=== PATIENT | female | born 1955 | race Two or more races ===

== ENCOUNTER 2024-08-21 23:59 | Inpatient (IN) | payer OTHER ==
[~2024-08-21] VITALS: Ht 160 cm; Wt 105.7 kg
[2024-08-22] VITALS (16 sets, daily range): BP systolic 84–114; BP diastolic 57–73; O2SAT 93–100
[2024-08-22] MEDS ORDERED: METFORMIN HCL1000 MG PO (00:17)
[2024-08-22] MEDS ORDERED: GLIMEPIRIDE2 MG (00:17)
--- NOTE | 2024-08-22 00:17 | NUR ---
PACIENTE REFIERE DOLOR EPIGASTRICO DESDE LAS 7PM LUEGO DE COMER. PACIENTE REFIERE QUE OTIS ENDOSCOPIA EN EL Jul EN DONDE SALIO CON DX. DE ESOPHAGITIS Y GASTRITIS.
[2024-08-22] MEDS ORDERED: HYOSCYAMINE SULFATE 0.125 MG TAB.SUBL SL STA (00:52)
[2024-08-22] MEDS ORDERED: KETOROLAC TROMETHAMINE 30 MG VIAL IV STA (00:53)
[2024-08-22] MEDS ORDERED: FAMOtidine 10 MG/ML (4ML VIAL) IV PUSH STA (00:54)
[2024-08-22] MEDS ORDERED: METOCLOPRAMIDE HCL 5 MG/ML VIAL IM STA (00:56)
[2024-08-22] MEDS ORDERED: MORPHINE SULFATE 2 MG/ML SYRINGE IV STA (00:59)
--- NOTE | 2024-08-22 01:25 | NUR ---
SE ORIENTA A PACIENTE Y FAMILIAR SOBRE TX MEDICO, REFIERE ENTENDER. SE ADMINISTRAN MEDICAMENTOS NELL ORDEN MEDICA. PENDIENTE RE-EVALUACION MEDICA. SE MANTIENE EN OBSERVACION POR CAMBIOS EN CONDICION MEDICA.
[2024-08-22] MEDS ORDERED: PANTOPRAZOLE SODIUM 40 MG/VIAL VIAL IV STA (02:32)
[2024-08-22] MEDS ORDERED: IPRATROPIUM/ALBUTEROL SULFATE 3 ML AMPUL.NEB IH STA (05:00)
[2024-08-22] MEDS ORDERED: 0.9 % SODIUM CHLORIDE 1,000 ML IV STA (05:03)
[2024-08-22] MEDS ORDERED: INSULIN REGULAR, HUMAN 1,000 UNIT/10 ML UNITS IV STA ×2 (05:05→08:19)
[2024-08-22] MEDS ORDERED: INSULIN REGULAR, HUMAN 1,000 UNIT/10 ML UNITS SUBCUTANEO STA (05:06)
--- NOTE | 2024-08-22 05:15 | NUR ---
FAMILIAR INDICA QUE PACIENTE SE ENCUENTRA "SUDOROSA, SE QUEJA DE FRIO Y NO PUEDE RESPIRAR"" REALIZA EKG Y SE NOTIFICA A REYES.
[2024-08-22] MEDS ORDERED: ONDANSETRON HCL 2 MG/ML VIAL IV STA (05:32)
--- NOTE | 2024-08-22 05:45 | NUR ---
SE TRANSFIERE PTE DE OBSERVACION A UNIDAD DE CHEST PAIN EN CAMA CON BARANDAS ELEVADAS POR MOREJON SEGURIDAD,SE CONECTA PTE A MONITOR CARDIACO,SE REALIZA SAJAN DE MUESTRAS DE LABORATORIO USANDO MEDIDAS ASEPTICAS,SE ADMINISTRAN MEDICAMENTOS NELL ORDEN MEDICA.SE REALIZA VENOPUNCIONES EN BRAZO TINA CON ANGIO #18 Y #20.SE COLOCA EN NRM 100% SATURANDO 88%,B/P-83/59(68) [address]AN [address]ACA PORTABLE DE PECHO. 0550 SE COLOCAN RESTRINSIONES EN EXTREMIDADES SUPERIORES POR ORDEN MEDICA DE . 0555 POR ORDEN MEDICA DE SE LLAMA PERSONAL DE ANESTESIA. 0559 SE ADMINISTRAN 5MG DE VERSED IV PUSH POR ORDEN MEDICA DE . 0600 SE ENTUBA PACIENTE POR TRINY CARLSON CON TUBO 7.5 FIJADO A 24 CM DE LABIOS,SE CONECTA A VENTILADOR MECANICO VT-400,R-16,PEEP-6,02-100%. 06:07 SE COLOCA DRIP DE VERSED 50MG/50 ML BAJANDO A 8ML/HR. 06:15 SE SAJAN PLACA DE PECHO PORTABLE POST EXTUBACION. PENDIENTE CT PECHO Y ABGS.
[2024-08-22] MEDS ORDERED: MIDAZOLAM HCL/PF 5 MG/ML VIAL IV STA (06:34)
[2024-08-22] MEDS ORDERED: MIDAZOLAM HCL 50 MG in 0.9 % SODIUM CHLORIDE 50 ML IV SCH (06:45)
[2024-08-22 06:50] LABS: ABG PH 7.339 (7.35-7.45); ABG PO2 57.8 mmHg (80-100); ABG pCO2 34.5 mmHg (35-45); BASE EXCESS -6.6 mmol/l; BICARBONATE 18.2 mmol/l (23-25); SaO2 87.1 %; Tco2 19.2 mmol/l; o2 100 %
[2024-08-22 06:51] LABS: allen test SATISFACTORY; puncture site RADIAL RIGHT
[2024-08-22 07:19] LABS: ALBUMIN 3.5 gm/dL (3.4-5.0); BILIRUBIN TOTAL 0.84 mg/dL (0.3-1.2); CALCIUM 8.9 mg/dL (8.5-10.1); CREATININE SERUM 0.98 mg/dL (0.55-1.02); GFR 55.94; GLOBULINA 3.3 G/DL (2.4-3.5); POTASSIUM 4.18 mEq/L (3.5-5.1); TOTAL PROTEIN 6.8 gm/dL (6.4-8.2)
[2024-08-22] MEDS ORDERED: CEFTRIAXONE SODIUM 2,000 MG VIAL IV STA (07:29)
[2024-08-22 07:36] LABS: HEMATOCRIT 39.5 % (36.0-45.00); HEMOGLOBIN 13.1 g/dL (12.0-15.00); MEAN CELL VOLUME 90.3 fL (80.00-100.00); MEAN CORPUSCULAR HEMOGLOBIN 29.9 pg (27.00-32.0); MEAN CORPUSCULAR HGB CONC 33.1 g/dl (32.0-36.0); PLATELET COUNT 302 K/uL (150-450); RED BLOOD COUNT 4.38 M/uL (4.00-6.00); RED CELL DISTRIBUTION WIDTH 14.2 % (11.5-14.5)
[2024-08-22] MEDS ORDERED: FUROsemide 40 MG/4 ML VIAL IV STA (07:56)
[2024-08-22] MEDS ORDERED: NITROGLYCERIN 50MG IN NSS (KIT INCLUYE LINEA) IV STA (07:57)
[2024-08-22 12:16] LABS: ABG PH 7.352 (7.35-7.45); ABG PO2 322.8 mmHg (80-100); ABG pCO2 36.7 mmHg (35-45)
[2024-08-22 12:17] LABS: BASE EXCESS -0.5 mmol/l; BICARBONATE 19.9 mmol/l (23-25); SaO2 99.9 %; allen test SATISFACTORY; o2 100 %; puncture site RADIAL RIGHT
[2024-08-22] MEDS ORDERED: 0.9 % SODIUM CHLORIDE 1,000 ML IV SCH (16:15)
--- NOTE | 2024-08-22 16:16 | NUR ---
1500 SE RECIBE PTE FEMENINA EN STATIONARY ENGINEER REFRIGERATION #18 DE UNIDAD DE CHESTPAIN, BAJO SEDACION MODERADA RESPONDIENDO A ESTIMULOS DE DOLOR, CONECTADA A MONITOR CARDIACO Y OXIMETRIA DE PULSO CONTINUA. SE OBSERVA ASISTIDA RESPIRATORIAMENTE CON VENTILADOR MECANICO, INTUBACION OROTRAQUEAL TUBO 7.5 FIJADO EN 24 EN CMOISURA LABIAL, PARAMETROS: MODO A/C, VT:400, PEEP:6, RR:14/MIN Y FIO2: 50%, PRESENTANDO SATURACION DE O2 MANUAL AL 100%. PTE SIN QUEJA DE DOLOR AL MOMENTO, VENOPUNCION PATENTES X3 EN BRAZO L+, LIBRES DE EDEMA YERITEMA RECIBIENDO TERAPIA DE IVFS LEVOPHED 4MG/250ML BAJANDO A 20ML/HR, VERSED 50MG/50ML BAJANDO A 4ML/HR Y 0.9NSS A KVO, NELL ORDENES MEDICAS. ABDOMEN BLANDO Y DEPRESIBLE CON PERISTALSIS PRESENTE. [PTE SIN PRESENCIA ENFISEMA SUBCUTANEO. SONDA URINARIA A GRAVEDAD DRENANDO EGRESO DE ORINA COLOR AMARILLO PRISCILLA. RESTRICCIONES BLANDAS X2 NELL ORDEN MEDICA. PTE EN CAMA NIVEL MAS BAJO, CABCERA A 45 GRADOS, BARANDAS ELEVADAS Y FRENOS COLOCADOS POR SEGURIDAD. PENDIENTE CONSULTA CON MEDICINA INTERNA YA NOTIFICADA. SE KEVIN Y REPORTAN S/V. SE MANTIENE BAJO OBSERVACION POR CAMBIOS EN MOREJON CONDICION.
[2024-08-22] MEDS ORDERED: ENOXAPARIN SODIUM 40 MG/0.4 ML SYRINGE SUBCUTANEO SCH (16:21)
[2024-08-22] MEDS ORDERED: ASPIRIN 325 MG TABLET.EC PO SCH (16:21)
[2024-08-22] MEDS ORDERED: PANTOPRAZOLE SODIUM 40 MG/VIAL VIAL IV PUSH SCH (16:22)
[2024-08-22] MEDS ORDERED: DEXTROSE 50 % IN WATER 0.5 G/ML DISP.SYRIN IV PRN (16:30)
[2024-08-22] MEDS ORDERED: INSULIN LISPRO 1,000 UNIT/10 ML UNITS SUBCUTANEO PRN (16:30)
[2024-08-22] MEDS ORDERED: CLOPIDOGREL BISULFATE 75 MG TABLET PO ONE (16:30)
[2024-08-22] MEDS ORDERED: ATORVASTATIN CALCIUM 40 MG TABLET PO SCH (17:00)
[2024-08-22] MEDS ORDERED: NOREPINEPHRINE BITARTRATE 8 MG in DEXTROSE 5 % IN WATER 250 ML IV SCH (17:15)
[2024-08-22] MEDS ORDERED: AZITHROMYCIN 500 MG VIAL IV SCH (17:49)
[2024-08-22] MEDS ORDERED: CEFTRIAXONE SODIUM 2,000 MG in DEXTROSE 5 % IN WATER 100 ML IV SCH (17:49)
[2024-08-22 19:39] LABS: CKMB 185.6 NG/ML (0.5-3.6)
[2024-08-23] VITALS (13 sets, daily range): BP systolic 86–123; BP diastolic 65–82; O2SAT 97–100
[2024-08-23] MEDS ORDERED: MIDAZOLAM HCL 100 MG in 0.9 % SODIUM CHLORIDE 100 ML IV SCH (06:45)
[2024-08-23 07:23] LABS: HEMATOCRIT 34.5 % (36.0-45.00); MEAN CELL VOLUME 87.1 fL (80.00-100.00); MEAN CORPUSCULAR HEMOGLOBIN 30.3 pg (27.00-32.0); MEAN CORPUSCULAR HGB CONC 34.7 g/dl (32.0-36.0); PLATELET COUNT 210 K/uL (150-450); RED BLOOD COUNT 3.96 M/uL (4.00-6.00); RED CELL DISTRIBUTION WIDTH 14.5 % (11.5-14.5)
[2024-08-23 07:40] LABS: BILIRUBIN TOTAL 0.47 mg/dL (0.3-1.2); CALCIUM 7.7 mg/dL (8.5-10.1); CHOL HDL RATIO 2.4 (0-5.0); CREATININE SERUM 0.53 mg/dL (0.55-1.02); GFR 113.72; GLOBULINA 2.8 G/DL (2.4-3.5); MAGNESIUM 2.2 mg/dL (1.8-2.4); POTASSIUM 4.27 mEq/L (3.5-5.1); TOTAL PROTEIN 5.8 gm/dL (6.4-8.2); TSH 0.836 uIU/mL (0.358-3.74)
[2024-08-23] MEDS ORDERED: INSULIN LISPRO 1,000 UNIT/10 ML UNITS SUBCUTANEO PRN (08:00)
[2024-08-23 08:09] LABS: C-REACTIVE PROTEIN 8.73 MG/DL (0.00-0.29)
[2024-08-23 08:10] LABS: CKMB 67.1 NG/ML (0.5-3.6)
[2024-08-23 08:13] LABS: ERYTHROCYTE SEDIMENTATION RATE 31 mm/hr
[2024-08-23 08:31] LABS: ABG PH 7.453 (7.35-7.45); ABG PO2 88.6 mmHg (80-100); ABG pCO2 30.3 mmHg (35-45); SaO2 97.2 %
[2024-08-23 08:32] LABS: BICARBONATE 20.7 mmol/l (23-25); Tco2 21.7 mmol/l; allen test SATISFACTORY; o2 50 %; puncture site RADIAL RIGHT
[2024-08-23] MEDS ORDERED: CLOPIDOGREL BISULFATE 75 MG TABLET PO SCH (09:00)
[2024-08-23] MEDS ORDERED: ENOXAPARIN SODIUM 40 MG/0.4 ML SYRINGE SUBCUTANEO SCH (09:00)
[2024-08-23] MEDS ORDERED: INSULIN NPH HUMAN ISOPHANE 1,000 UNITS/10 ML UNITS SUBCUTANEO SCH (09:00)
[2024-08-23] MEDS ORDERED: POTASSIUM PHOS,M-BASIC-D-BASIC 18 MM in 0.9 % SODIUM CHLORIDE 250 ML IV ONE (18:30)
[2024-08-23] MEDS ORDERED: POLYVINYL ALCOHOL 15 ML DROPS OP SCH (18:32)
[2024-08-23] MEDS ORDERED: CHLORHEXIDINE GLUCONATE 15ML BRUSH KIT MM SCH (18:32)
[2024-08-24] VITALS (13 sets, daily range): BP systolic 84–95; BP diastolic 55–72; O2SAT 97–100
[2024-08-24 07:24] LABS: ALBUMIN 2.5 gm/dL (3.4-5.0); BILIRUBIN TOTAL 0.64 mg/dL (0.3-1.2); CALCIUM 7.6 mg/dL (8.5-10.1); CREATININE SERUM 0.51 mg/dL (0.55-1.02); GFR 118.87; GLOBULINA 2.6 G/DL (2.4-3.5); MAGNESIUM 2.5 mg/dL (1.8-2.4); PHOSPHOROUS 2.7 mg/dL (2.5-4.9); POTASSIUM 4.52 mEq/L (3.5-5.1); TOTAL PROTEIN 5.1 gm/dL (6.4-8.2)
[2024-08-24 07:27] LABS: HEMATOCRIT 32.3 % (36.0-45.00); HEMOGLOBIN 11.1 g/dL (12.0-15.00); MEAN CELL VOLUME 88.1 fL (80.00-100.00); MEAN CORPUSCULAR HEMOGLOBIN 30.3 pg (27.00-32.0); MEAN CORPUSCULAR HGB CONC 34.5 g/dl (32.0-36.0); PLATELET COUNT 197 K/uL (150-450); RED BLOOD COUNT 3.67 M/uL (4.00-6.00); RED CELL DISTRIBUTION WIDTH 14.4 % (11.5-14.5)
[2024-08-24 07:46] LABS: C-REACTIVE PROTEIN 17.1 MG/DL (0.00-0.29)
[2024-08-24 09:40] LABS: MYCOPLASMA PNEUMONIAE IGM NON REACTIVE (NO REACTIVE)
[2024-08-24 11:49] LABS: ABG PH 7.386 (7.35-7.45); ABG pCO2 32.4 mmHg (35-45)
[2024-08-24 11:50] LABS: ABG PO2 82.8 mmHg (80-100); BASE EXCESS -4.9 mmol/l; SaO2 95.7 %
[2024-08-24 11:51] LABS: allen test SATISFACTORY; o2 50 %; puncture site RADIAL RIGHT
[2024-08-25] VITALS (11 sets, daily range): BP systolic 89–112; BP diastolic 59–76; O2SAT 92–100
[2024-08-25] MEDS ORDERED: FUROsemide 20 MG/2 ML VIAL IV SCH ×2 (09:00→17:00)
[2024-08-25] MEDS ORDERED: ASPIRIN 81 MG TABLET.EC PO SCH (09:00)
[2024-08-25 09:23] LABS: PROCALCITONIN 0.119 ng/ml (0.020-0.080)
[2024-08-25 10:04] LABS: CORTISOL 36.59 ug/dl
[2024-08-25 13:08] LABS: ABG PH 7.442 (7.35-7.45); ABG PO2 115.7 mmHg (80-100); ABG pCO2 23.2 mmHg (35-45); BASE EXCESS -6.4 mmol/l; BICARBONATE 15.5 mmol/l (23-25); SaO2 98.6 %; Tco2 16.2 mmol/l
[2024-08-25 13:09] LABS: o2 45 %
[2024-08-25 13:11] LABS: allen test SATISFACTORY; puncture site RADIAL LEFT
[2024-08-25] MEDS ORDERED: ENOXAPARIN SODIUM 40 MG/0.4 ML SYRINGE SUBCUTANEO SCH (21:00)
[2024-08-25 23:18] LABS: HEMATOCRIT 34.9 % (36.0-45.00); MEAN CELL VOLUME 90.8 fL (80.00-100.00); PLATELET COUNT 242 K/uL (150-450); RED BLOOD COUNT 3.84 M/uL (4.00-6.00); RED CELL DISTRIBUTION WIDTH 15.1 % (11.5-14.5)
[2024-08-25 23:42] LABS: INR 1.28; PARTIAL THROMBOPLASTIN TIME 26.7 SECONDS (22.0-34.0); PROTHROMBIN TIME 13.7 SECONDS (9.0-11.5)
[2024-08-25 23:52] LABS: ALBUMIN 2.5 gm/dL (3.4-5.0); BILIRUBIN TOTAL 0.85 mg/dL (0.3-1.2); CALCIUM 7.8 mg/dL (8.5-10.1); CREATININE SERUM 0.73 mg/dL (0.55-1.02); GFR 78.59; GLOBULINA 2.8 G/DL (2.4-3.5); MAGNESIUM 2.7 mg/dL (1.8-2.4); PHOSPHOROUS 3.7 mg/dL (2.5-4.9); POTASSIUM 4.06 mEq/L (3.5-5.1); TOTAL PROTEIN 5.3 gm/dL (6.4-8.2)
[2024-08-25 23:59] LABS: HEMOGLOBIN 11.1 g/dL (12.0-15.00); MEAN CORPUSCULAR HEMOGLOBIN 28.9 pg (27.00-32.0)
[2024-08-26] VITALS (7 sets, daily range): BP systolic 95–138; BP diastolic 52–72; O2SAT 96–100
[2024-08-26] MEDS ORDERED: LACTULOSE 20 G/30 ML BLIST.PACK NGT STA (09:46)
[2024-08-26] MEDS ORDERED: MAGNESIUM HYDROXIDE 30 ML BLIST.PACK PO STA (09:47)
[2024-08-26] MEDS ORDERED: MINERAL OIL 30 ML BLIST.PACK PO STA (09:47)
[2024-08-26] MEDS ORDERED: SODIUM BICARBONATE 150 MEQ in DEXTROSE 5 % IN WATER 1,000 ML IV SCH (10:15)
[2024-08-26 10:48] LABS: HEMOGLOBIN 10.9 g/dL (12.0-15.00); MEAN CELL VOLUME 89.4 fL (80.00-100.00); MEAN CORPUSCULAR HEMOGLOBIN 30.4 pg (27.00-32.0); PLATELET COUNT 226 K/uL (150-450); RED BLOOD COUNT 3.58 M/uL (4.00-6.00); RED CELL DISTRIBUTION WIDTH 15.1 % (11.5-14.5)
[2024-08-26 10:55] LABS: ABG PH 7.279 (7.35-7.45); ABG PO2 76.4 mmHg (80-100); ABG pCO2 26.6 mmHg (35-45); BASE EXCESS -12.8 mmol/l; BICARBONATE 12.2 mmol/l (23-25); SaO2 92.2 %
[2024-08-26 10:56] LABS: allen test SATISFACTORY; o2 80 %; puncture site RADIAL RIGHT
[2024-08-26 11:58] LABS: ALBUMIN 2.4 gm/dL (3.4-5.0); BILIRUBIN TOTAL 0.71 mg/dL (0.3-1.2); CALCIUM 6.9 mg/dL (8.5-10.1); CREATININE SERUM 1.12 mg/dL (0.55-1.02); GFR 47.95; GLOBULINA 2.6 G/DL (2.4-3.5); MAGNESIUM 2.8 mg/dL (1.8-2.4); PHOSPHOROUS 3.4 mg/dL (2.5-4.9); POTASSIUM 4.18 mEq/L (3.5-5.1)
[2024-08-26 21:13] LABS: TP PLEURAL FLUID 1.7 g/dl
[2024-08-26] MEDS ORDERED: LACTULOSE 10 G/15 ML ML RECTAL ONE (21:30)
[2024-08-26 21:46] LABS: MONONUCLEAR 63 %; PLEURAL FLUID APPEARANCE CRYSTAL CLEAR; PLEURAL FLUID COLOR YELLOW; POLYMORPHONUCLEAR 37 %
[2024-08-27 04:00] VITALS: BP 106/68; O2SAT 100
[2024-08-27 07:08] LABS: ALBUMIN 2.3 gm/dL (3.4-5.0); BILIRUBIN TOTAL 0.57 mg/dL (0.3-1.2); CALCIUM 6.6 mg/dL (8.5-10.1); CREATININE SERUM 0.98 mg/dL (0.55-1.02); GFR 55.94; GLOBULINA 2.8 G/DL (2.4-3.5); POTASSIUM 3.7 mEq/L (3.5-5.1); TOTAL PROTEIN 5.1 gm/dL (6.4-8.2)
[2024-08-27 07:19] LABS: PHOSPHOROUS 1.6 mg/dL (2.5-4.9)
[2024-08-27 07:23] VITALS: BP 103/67; O2SAT 100
[2024-08-27 08:27] LABS: ABG PO2 278.7 mmHg (80-100); ABG pCO2 32.8 mmHg (35-45); BASE EXCESS 3.1 mmol/l; BICARBONATE 25.6 mmol/l (23-25); SaO2 99.9 %; Tco2 26.6 mmol/l
[2024-08-27 08:34] LABS: o2 80 %
[2024-08-27 08:35] LABS: allen test NO SATISFACTORY; puncture site RADIAL RIGHT
[2024-08-27] MEDS ORDERED: INSULIN NPH HUMAN ISOPHANE 1,000 UNITS/10 ML UNITS SUBCUTANEO SCH (09:00)
[2024-08-27] MEDS ORDERED: DEXTROSE 5 % IN WATER 1,000 ML IV SCH (10:15)
[2024-08-27] MEDS ORDERED: SOD PHOSPHATE,MONOBASIC-DIBAS 3 MMOL/ML VIAL IV NR (10:15)
[2024-08-27] MEDS ORDERED: POTASSIUM PHOS,M-BASIC-D-BASIC 3 MM/ML VIAL IV NR ×2 (10:45→19:00)
[2024-08-27 12:00] VITALS: BP 104/70; O2SAT 99
[2024-08-27 15:55] VITALS: BP 112/70; O2SAT 99
[2024-08-27 20:00] VITALS: BP 97/64; O2SAT 99
[2024-08-27 23:47] VITALS: BP 98/73; O2SAT 98
[2024-08-28 04:00] VITALS: BP 98/64; O2SAT 100
[2024-08-28 06:23] LABS: HEMATOCRIT 31.3 % (36.0-45.00); HEMOGLOBIN 10.4 g/dL (12.0-15.00); MEAN CELL VOLUME 88.5 fL (80.00-100.00); MEAN CORPUSCULAR HEMOGLOBIN 29.5 pg (27.00-32.0); MEAN CORPUSCULAR HGB CONC 33.4 g/dl (32.0-36.0); PLATELET COUNT 162 K/uL (150-450); RED BLOOD COUNT 3.53 M/uL (4.00-6.00)
[2024-08-28 06:46] LABS: ALBUMIN 2.3 gm/dL (3.4-5.0); BILIRUBIN TOTAL 0.42 mg/dL (0.3-1.2); CALCIUM 6.7 mg/dL (8.5-10.1); CREATININE SERUM 0.73 mg/dL (0.55-1.02); GFR 78.59; GLOBULINA 2.8 G/DL (2.4-3.5); MAGNESIUM 2.9 mg/dL (1.8-2.4); POTASSIUM 3.9 mEq/L (3.5-5.1); TOTAL PROTEIN 5.1 gm/dL (6.4-8.2)
[2024-08-28 07:25] LABS: PHOSPHOROUS 1.9 mg/dL (2.5-4.9)
[2024-08-28 07:36] VITALS: BP 99/61; O2SAT 100
[2024-08-28] MEDS ORDERED: POTASSIUM PHOS,M-BASIC-D-BASIC 3 MM/ML VIAL IV NR (08:15)
[2024-08-28 12:00] VITALS: BP 85/56; O2SAT 97
[2024-08-28 12:29] LABS: ABG PH 7.545 (7.35-7.45); ABG PO2 165.2 mmHg (80-100); ABG pCO2 32.3 mmHg (35-45); BASE EXCESS 5.3 mmol/l; BICARBONATE 27.3 mmol/l (23-25); SaO2 99.7 %; Tco2 28.3 mmol/l
[2024-08-28 12:31] LABS: allen test SATISFACTORY; o2 50 %; puncture site RADIAL RIGHT
[2024-08-28 15:18] VITALS: BP 89/58; O2SAT 100
[2024-08-28 20:00] VITALS: BP 85/54; O2SAT 100
[2024-08-28] MEDS ORDERED: INSULIN NPH HUMAN ISOPHANE 1,000 UNITS/10 ML UNITS SUBCUTANEO SCH (21:00)
[2024-08-28] MEDS ORDERED: LORazepam 2 MG/ML VIAL IV PUSH SCH (21:00)
[2024-08-28 23:49] VITALS: BP 112/62; O2SAT 100
[2024-08-29] VITALS (7 sets, daily range): BP systolic 89–109; BP diastolic 58–63; O2SAT 80–100
[2024-08-29 06:58] LABS: HEMATOCRIT 31.6 % (36.0-45.00); HEMOGLOBIN 10.7 g/dL (12.0-15.00); MEAN CORPUSCULAR HEMOGLOBIN 30.1 pg (27.00-32.0); MEAN CORPUSCULAR HGB CONC 33.8 g/dl (32.0-36.0); PLATELET COUNT 163 K/uL (150-450); RED BLOOD COUNT 3.55 M/uL (4.00-6.00)
[2024-08-29 07:45] LABS: ALBUMIN 2.3 gm/dL (3.4-5.0); BILIRUBIN TOTAL 0.62 mg/dL (0.3-1.2); CALCIUM 6.8 mg/dL (8.5-10.1); CREATININE SERUM 0.71 mg/dL (0.55-1.02); GFR 81.15; GLOBULINA 2.8 G/DL (2.4-3.5); MAGNESIUM 3.1 mg/dL (1.8-2.4); PHOSPHOROUS 2.3 mg/dL (2.5-4.9); POTASSIUM 3.86 mEq/L (3.5-5.1); TOTAL PROTEIN 5.1 gm/dL (6.4-8.2)
[2024-08-29 11:04] LABS: ABG PH 7.518 (7.35-7.45); ABG PO2 88.7 mmHg (80-100); BASE EXCESS 4.4 mmol/l; SaO2 97.9 %
[2024-08-29] MEDS ORDERED: LEVALBUTEROL HCL 1.25 MG/3 ML SOLUTION IH NR (11:24)
[2024-08-29] MEDS ORDERED: METHYLPREDNISOLONE SOD SUCC 40 MG VIAL IV STA (11:24)
[2024-08-29] MEDS ORDERED: RACEPINEPHRINE HCL 0.5 ML AMPUL IH NR (11:30)
[2024-08-29 11:57] LABS: allen test SATISFACTORY; o2 40 %; puncture site RADIAL LEFT
[2024-08-29 12:53] LABS: ABG PH 7.516 (7.35-7.45); ABG PO2 74.7 mmHg (80-100); ABG pCO2 35.1 mmHg (35-45); BICARBONATE 27.8 mmol/l (23-25); SaO2 96.5 %; Tco2 28.9 mmol/l
[2024-08-29 12:54] LABS: allen test SATISFACTORY; o2 36 %; puncture site RADIAL LEFT
[2024-08-29] MEDS ORDERED: METHYLPREDNISOLONE SOD SUCC 40 MG VIAL IV SCH (17:00)
[2024-08-29] MEDS ORDERED: METHYLPREDNISOLONE SOD SUCC 40 MG VIAL IV ONE (19:15)
[2024-08-29] MEDS ORDERED: LEVALBUTEROL HCL 0.63 MG/3 ML SOLUTION IH SCH (19:15)
[2024-08-29] MEDS ORDERED: IPRATROPIUM BROMIDE 0.5 MG/2.5 ML AMPUL.NEB IH SCH (19:15)
[2024-08-29] MEDS ORDERED: BUDESONIDE 0.5 MG/2 ML AMPUL.NEB IH SCH (21:00)
[2024-08-30] MEDS ORDERED: METHYLPREDNISOLONE SOD SUCC 40 MG VIAL IV SCH ×2 (01:00→17:00)
[2024-08-30 04:00] VITALS: BP 101/60; O2SAT 100
[2024-08-30 07:09] VITALS: BP 109/61; O2SAT 100
[2024-08-30] MEDS ORDERED: NICOTINE 21MG/24HR PATCH.TD24 TD SCH ×2 (10:00→11:00)
[2024-08-30 10:04] LABS: ABG PH 7.507 (7.35-7.45); ABG pCO2 38.7 mmHg (35-45); BASE EXCESS 6.5 mmol/l; BICARBONATE 31.2 mmol/l (23-25); SaO2 98.9 %
[2024-08-30 10:05] LABS: Tco2 31.2 mmol/l; allen test SATISFACTORY; puncture site RADIAL LEFT
[2024-08-30 10:06] LABS: o2 70 %
[2024-08-30 12:00] VITALS: BP 98/60; O2SAT 94
[2024-08-30 15:30] VITALS: BP 98/60; O2SAT 99
[2024-08-30] MEDS ORDERED: IPRATROPIUM BROMIDE 0.5 MG/2.5 ML AMPUL.NEB IH SCH (16:00)
[2024-08-30] MEDS ORDERED: LEVALBUTEROL HCL 0.63 MG/3 ML SOLUTION IH SCH (16:00)
[2024-08-30 17:06] LABS: URINE APPEARANCE Clear; URINE BILIRRUBIN Negative (NEGATIVE); URINE BLOOD Negative; URINE COLOR Yellow; URINE KETONE Negative (NEGATIVE); URINE LEUKOCYTE Negative; URINE NITRATE Negative; URINE PROTEIN Negative (NEGATIVE); URINE UROBILINOGEN 0.2 E.U./dl
[2024-08-30 17:10] LABS: URINE CAST 1.76 uL (0.0-1.40); URINE EPITHELIAL CELLS 4.7 uL (0.0-38.8); URINE RBC 18.5 uL (0.0-20.8); URINE WBC 6.3 uL (0.0-23.2)
[2024-08-30 17:33] LABS: URINE GLUCOSE 100 MG/DL (NEGATIVE)
[2024-08-30 17:34] LABS: URINE BACTERIA 3.6 uL (0.0-1933)
[2024-08-30] MEDS ORDERED: PIPERACILLIN/TAZOBACTAM SODIUM 3.375 GM in DEXTROSE 5 % IN WATER 100 ML IV SCH (18:00)
[2024-08-30 20:00] VITALS: BP 114/64; O2SAT 100
[2024-08-30] MEDS ORDERED: INSULIN NPH HUMAN ISOPHANE 1,000 UNITS/10 ML UNITS SUBCUTANEO SCH (21:00)
[2024-08-30 23:15] VITALS: BP 114/64; O2SAT 100
[2024-08-31 04:00] VITALS: BP 92/54; O2SAT 100
[2024-08-31 07:18] VITALS: BP 100/56; O2SAT 100
[2024-08-31 12:00] VITALS: BP 101/60; O2SAT 96
[2024-08-31 16:00] VITALS: BP 95/53; O2SAT 92
[2024-08-31 20:00] VITALS: BP 93/52; O2SAT 93
[2024-09-01] VITALS (7 sets, daily range): BP systolic 88–111; BP diastolic 49–64; O2SAT 95–100
[2024-09-01 06:55] LABS: HEMATOCRIT 32.6 % (36.0-45.00); HEMOGLOBIN 10.7 g/dL (12.0-15.00); MEAN CELL VOLUME 90.5 fL (80.00-100.00); MEAN CORPUSCULAR HEMOGLOBIN 29.8 pg (27.00-32.0); PLATELET COUNT 186 K/uL (150-450)
[2024-09-01 10:28] LABS: RH POSITIVE
[2024-09-01] MEDS ORDERED: PATIENTS OWN MEDICATION (MEDICAMENTO EN PISO) OP SCH ×2 (17:00→21:00)
[2024-09-01] MEDS ORDERED: MEROPENEM 500 MG/VIAL VIAL IV SCH (18:00)
[2024-09-01] MEDS ORDERED: VANCOMYCIN HCL 1,000 MG VIAL IV SCH (21:00)
[2024-09-01 21:39] LABS: CALCIUM 7.6 mg/dL (8.5-10.1); CREATININE SERUM 0.47 mg/dL (0.55-1.02); GFR 130.63
[2024-09-01 21:56] LABS: POTASSIUM 2.36 mEq/L (3.5-5.1)
[2024-09-01] MEDS ORDERED: LACTULOSE 10 G/15 ML ML RECTAL ONE (22:45)
[2024-09-01] MEDS ORDERED: POTASSIUM CHLORIDE IN WATER 100 ML IV ONE (22:45)
[2024-09-01] MEDS ORDERED: ACETAZOLAMIDE SODIUM 250 MG in DEXTROSE 5 % IN WATER 100 ML IV SCH (22:45)
[2024-09-02] VITALS (13 sets, daily range): BP systolic 90–131; BP diastolic 47–70; O2SAT 100
[2024-09-02 06:44] LABS: HEMATOCRIT 30.9 % (36.0-45.00); HEMOGLOBIN 10.2 g/dL (12.0-15.00); MEAN CELL VOLUME 91.2 fL (80.00-100.00); MEAN CORPUSCULAR HEMOGLOBIN 30.2 pg (27.00-32.0); MEAN CORPUSCULAR HGB CONC 33.1 g/dl (32.0-36.0); PLATELET COUNT 167 K/uL (150-450); RED BLOOD COUNT 3.39 M/uL (4.00-6.00); RED CELL DISTRIBUTION WIDTH 14.5 % (11.5-14.5)
[2024-09-02 06:54] LABS: ALBUMIN 2.3 gm/dL (3.4-5.0); BILIRUBIN TOTAL 1.15 mg/dL (0.3-1.2); CALCIUM 7.5 mg/dL (8.5-10.1); CREATININE SERUM 0.5 mg/dL (0.55-1.02); GFR 121.62; GLOBULINA 2.9 G/DL (2.4-3.5); MAGNESIUM 2.6 mg/dL (1.8-2.4); PHOSPHOROUS 2.1 mg/dL (2.5-4.9); TOTAL PROTEIN 5.2 gm/dL (6.4-8.2)
[2024-09-02 07:11] LABS: POTASSIUM 2.91 mEq/L (3.5-5.1)
[2024-09-02 08:18] LABS: ABG PO2 98.7 mmHg (80-100); BASE EXCESS 18.5 mmol/l; BICARBONATE 41.9 mmol/l (23-25); Tco2 43.2 mmol/l
[2024-09-02] MEDS ORDERED: ACETAZOLAMIDE SODIUM 500 MG VIAL IV SCH (09:00)
[2024-09-02] MEDS ORDERED: POTASSIUM PHOS,M-BASIC-D-BASIC 18 MM in 0.9 % SODIUM CHLORIDE 500 ML IV NR (09:00)
[2024-09-02 09:09] LABS: ob POSITIVE (NEGATIVE)
[2024-09-02 09:39] LABS: ABG PH 7.617 (7.35-7.45)
[2024-09-02 09:40] LABS: allen test SATISFACTORY; o2 100 %; puncture site RADIAL LEFT
[2024-09-02] MEDS ORDERED: POTASSIUM CHLORIDE IN WATER 100 ML IV NR (10:00)
[2024-09-02] MEDS ORDERED: NOREPINEPHRINE BITARTRATE 8 MG in DEXTROSE 5 % IN WATER 250 ML IV SCH (15:15)
[2024-09-02] MEDS ORDERED: LACTULOSE 10 G/15 ML ML RECTAL ONE (19:45)
[2024-09-02] MEDS ORDERED: MORPHINE SULFATE 2 MG/ML CARTRIDGE IV PRN (20:15)
[2024-09-03] VITALS (23 sets, daily range): BP systolic 94–120; BP diastolic 45–65; O2SAT 97–100
[2024-09-03 00:42] LABS: URINE APPEARANCE Clear; URINE BILIRRUBIN Negative (NEGATIVE); URINE BLOOD Negative; URINE COLOR Dark Yellow; URINE KETONE 15 (NEGATIVE); URINE LEUKOCYTE Trace; URINE NITRATE Negative
[2024-09-03 00:46] LABS: URINE BACTERIA 9.7 uL (0.0-1933); URINE EPITHELIAL CELLS 2.5 uL (0.0-38.8); URINE RBC 547.2 uL (0.0-20.8); URINE WBC 10.9 uL (0.0-23.2)
[2024-09-03 02:12] LABS: URINE CAST 0.58 uL (0.0-1.40); URINE GLUCOSE 100 MG/DL (NEGATIVE); URINE PROTEIN 100 (NEGATIVE); URINE YEAST MODERATE /hpf
[2024-09-03] MEDS ORDERED: ALBUMIN HUMAN 100 ML VIAL IV SCH (12:00)
[2024-09-03 13:11] LABS: HEMATOCRIT 32.7 % (36.0-45.00); HEMOGLOBIN 10.5 g/dL (12.0-15.00); MEAN CELL VOLUME 91.3 fL (80.00-100.00); MEAN CORPUSCULAR HEMOGLOBIN 29.2 pg (27.00-32.0); PLATELET COUNT 192 K/uL (150-450); RED BLOOD COUNT 3.59 M/uL (4.00-6.00); RED CELL DISTRIBUTION WIDTH 14.6 % (11.5-14.5)
[2024-09-03 14:21] LABS: ALBUMIN 2.4 gm/dL (3.4-5.0); BILIRUBIN TOTAL 1.04 mg/dL (0.3-1.2); CALCIUM 7.8 mg/dL (8.5-10.1); GLOBULINA 2.7 G/DL (2.4-3.5); MAGNESIUM 2.8 mg/dL (1.8-2.4); PHOSPHOROUS 3.4 mg/dL (2.5-4.9); TOTAL PROTEIN 5.1 gm/dL (6.4-8.2)
[2024-09-03 14:26] LABS: CREATININE SERUM 0.28 mg/dL (0.55-1.02); GFR 237.48
[2024-09-03 14:27] LABS: POTASSIUM 2.66 mEq/L (3.5-5.1)
[2024-09-03] MEDS ORDERED: POTASSIUM CHLORIDE IN WATER 40 MEQ/100 ML PIGGYBAG IV SCH (17:00)
[2024-09-04] VITALS (23 sets, daily range): BP systolic 90–133; BP diastolic 49–76; O2SAT 98–100
[2024-09-04 10:17] LABS: HEMATOCRIT 32.2 % (36.0-45.00); HEMOGLOBIN 10.6 g/dL (12.0-15.00); MEAN CELL VOLUME 89.9 fL (80.00-100.00); MEAN CORPUSCULAR HEMOGLOBIN 29.7 pg (27.00-32.0); MEAN CORPUSCULAR HGB CONC 33.1 g/dl (32.0-36.0); PLATELET COUNT 159 K/uL (150-450); RED BLOOD COUNT 3.58 M/uL (4.00-6.00); RED CELL DISTRIBUTION WIDTH 14.9 % (11.5-14.5)
[2024-09-04 11:16] LABS: ALBUMIN 2.6 gm/dL (3.4-5.0); BILIRUBIN TOTAL 1.6 mg/dL (0.3-1.2); CALCIUM 8.3 mg/dL (8.5-10.1); CREATININE SERUM 0.45 mg/dL (0.55-1.02); GFR 137.35; GLOBULINA 2.6 G/DL (2.4-3.5); MAGNESIUM 2.7 mg/dL (1.8-2.4); PHOSPHOROUS 2.5 mg/dL (2.5-4.9); POTASSIUM 4.2 mEq/L (3.5-5.1); TOTAL PROTEIN 5.2 gm/dL (6.4-8.2)
[2024-09-04] MEDS ORDERED: DEXTROSE 5 % IN WATER 1,000 ML IV SCH (12:15)
[2024-09-04] MEDS ORDERED: FLUCONAZOLE IN NACL,ISO-OSM 2 MG/ML ML IV SCH (17:00)
[2024-09-04] MEDS ORDERED: FLUCONAZOLE IN NACL,ISO-OSM 200 MG/100 ML PIGGYBAG IV NR (17:00)
[2024-09-04] MEDS ORDERED: HYDROCORTISONE SODIUM SUCC/PF 100 MG VIAL IV SCH (20:40)
[2024-09-04] MEDS ORDERED: HYDROCORTISONE SODIUM SUCC/PF 100 MG VIAL ONE (21:06)
[2024-09-05] VITALS (23 sets, daily range): BP systolic 84–133; BP diastolic 33–74; O2SAT 90–100
[2024-09-05] MEDS ORDERED: HYDROCORTISONE SODIUM SUCC/PF 100 MG VIAL ONE (00:15)
[2024-09-05 06:24] LABS: HEMATOCRIT 31.9 % (36.0-45.00); HEMOGLOBIN 10.3 g/dL (12.0-15.00); MEAN CELL VOLUME 90.2 fL (80.00-100.00); MEAN CORPUSCULAR HEMOGLOBIN 29.1 pg (27.00-32.0); MEAN CORPUSCULAR HGB CONC 32.2 g/dl (32.0-36.0); PLATELET COUNT 145 K/uL (150-450); RED BLOOD COUNT 3.53 M/uL (4.00-6.00); RED CELL DISTRIBUTION WIDTH 15.2 % (11.5-14.5)
[2024-09-05 07:14] LABS: ALBUMIN 2.5 gm/dL (3.4-5.0); BILIRUBIN TOTAL 1.09 mg/dL (0.3-1.2); CREATININE SERUM 0.35 mg/dL (0.55-1.02); GFR 183.56; GLOBULINA 2.5 G/DL (2.4-3.5); MAGNESIUM 2.4 mg/dL (1.8-2.4); POTASSIUM 3.67 mEq/L (3.5-5.1)
[2024-09-05 07:27] LABS: C-REACTIVE PROTEIN 13.5 MG/DL (0.00-0.29)
[2024-09-05] MEDS ORDERED: FLUCONAZOLE IN NACL,ISO-OSM 50 ML IV SCH (12:00)
[2024-09-05] MEDS ORDERED: MORPHINE SULFATE 4 MG/ML CARTRIDGE IV SCH (13:15)
[2024-09-05] MEDS ORDERED: SODIUM CHLORIDE 0.9% IV SCH (14:15)
[2024-09-05] MEDS ORDERED: MORPHINE SULFATE IV SCH (14:15)
[2024-09-05] MEDS ORDERED: FLUCONAZOLE IN NACL,ISO-OSM 2 MG/ML ML IV SCH (17:00)
[2024-09-05] MEDS ORDERED: ANIDULAFUNGIN 100 MG VIAL IV NR (17:00)
[2024-09-05] MEDS ORDERED: AA 4.25%/CAL/LYTES/DEXT 5% 1,000 ML PERIFERAL SCH (17:00)
[2024-09-06] VITALS: BP 84/63; O2SAT 91
[2024-09-06 01:00] VITALS: BP 91/57; O2SAT 93
[2024-09-06 02:00] VITALS: BP 86/50; O2SAT 94
[2024-09-06 04:00] VITALS: BP 81/60; O2SAT 90
[2024-09-06] MEDS ORDERED: ANIDULAFUNGIN 100 MG VIAL IV SCH (17:00)
== END 2024-09-06 05:31 | disposition expired ==
LOC: ER 08-22 00:01 → ICU 08-22 17:00 → ICU-2 08-22 17:00 → ICU 08-22 21:53
PROVIDERS: Internal Medicine; Internal Medicine Infectious Disease; Radiology Vascular & Interventional Radiology; ADMIT Internal Medicine; ATTEND Internal Medicine
PROC: 0BH18EZ Insertion of Endotracheal Airway into Trachea, Via Natural or Artificial Opening Endoscopic (ICD-10-PCS; 2024-08-22)
PROC: 5A1955Z Respiratory Ventilation, Greater than 96 Consecutive Hours (ICD-10-PCS; 2024-08-22)
PROC: BW24ZZZ Computerized Tomography (CT Scan) of Chest and Abdomen (ICD-10-PCS; 2024-08-22)
PROC: B24BYZZ Ultrasonography of Heart with Aorta using Other Contrast (ICD-10-PCS; 2024-08-24)
PROC: 02HV33Z Insertion of Infusion Device into Superior Vena Cava, Percutaneous Approach (ICD-10-PCS; 2024-08-24)
PROC: BW28ZZZ Computerized Tomography (CT Scan) of Head (ICD-10-PCS; 2024-08-25)
PROC: BW40ZZZ Ultrasonography of Abdomen (ICD-10-PCS; 2024-08-26)
PROC: 0W9B30Z Drainage of Left Pleural Cavity with Drainage Device, Percutaneous Approach (ICD-10-PCS; principal; 2024-08-27)
PROC: B020ZZZ Computerized Tomography (CT Scan) of Brain (ICD-10-PCS; 2024-08-30)
PROC: BW20YZZ Computerized Tomography (CT Scan) of Abdomen using Other Contrast (ICD-10-PCS; 2024-09-01)
PROC: BW24YZZ Computerized Tomography (CT Scan) of Chest and Abdomen using Other Contrast (ICD-10-PCS; 2024-09-01)
PROC: 0W993ZZ Drainage of Right Pleural Cavity, Percutaneous Approach (ICD-10-PCS; 2024-09-02)
PROC: 0W9B3ZZ Drainage of Left Pleural Cavity, Percutaneous Approach (ICD-10-PCS; 2024-09-03)
PROC: B24BYZZ Ultrasonography of Heart with Aorta using Other Contrast (ICD-10-PCS; 2024-09-03)
DX: I24.9 Acute ischemic heart disease, unspecified (principal); J69.0 Pneumonitis due to inhalation of food and vomit; I21.4 Non-ST elevation (NSTEMI) myocardial infarction; J96.00 Acute respiratory failure, unspecified whether with hypoxia or hypercapnia; J90 Pleural effusion, not elsewhere classified; E87.20 Acidosis, unspecified; I50.20 Unspecified systolic (congestive) heart failure; E87.0 Hyperosmolality and hypernatremia; G93.40 Encephalopathy, unspecified; J44.1 Chronic obstructive pulmonary disease with (acute) exacerbation; E11.65 Type 2 diabetes mellitus with hyperglycemia; Z79.4 Long term (current) use of insulin; F17.210 Nicotine dependence, cigarettes, uncomplicated; D72.829 Elevated white blood cell count, unspecified; K30 Functional dyspepsia; K44.9 Diaphragmatic hernia without obstruction or gangrene; I50.9 Heart failure, unspecified; K80.20 Calculus of gallbladder without cholecystitis without obstruction; D64.9 Anemia, unspecified; Z66 Do not resuscitate